=== PATIENT | male | born 1970 | race Two or more races ===

== ENCOUNTER 2020-02-16 02:58 | Emergency (ER) | payer SELFPAY ==
[~2020-02-16] VITALS: Ht 172.7 cm; Wt 77.1 kg
--- NOTE | 2020-02-16 03:00 | NUR ---
ED Nurse Note: BROUGHT IN BY [employer] AND [employer] FOR POSSIBLE SUBSTANCE ABUSE. PT STATES SEEING THINGS AND TALKING TO SELF. NO SUICIDAL IDEATION OR HARM TO SELF/OTHERS. PT IS NOT PLACED ON HOLD.
[2020-02-16 03:07] VITALS: BP 145/91
[2020-02-16 03:15] VITALS: BP 143/93
[2020-02-16] MEDS ORDERED: Haloperidol 5mg/ml Inj IM ONE (03:30)
[2020-02-16] MEDS ORDERED: LORazepam Inj 2mg/ml 1ml IV ONE (03:30)
[2020-02-16] MEDS ORDERED: DiphenhydrAMINE 50mg/ml Inj IVP ONE (03:30)
--- NOTE | 2020-02-16 03:32 | Emergency Room Report ---
History of Present Illness General Chief Complaint: Substance Abuse Source: Patient, EMS (Ki Spangler DO) Present Illness HPI Patient presents by paramedics for reports of bizarre behavior and agitated patient's had reported that the patient does smoke marijuana regularly however there was question for possible amphetamine abuse tonight Patient himself does admit to taking marijuana Denies any headache denies any chest pain Patient does have rapid speech however and appears mildly agitated on questioning denies any homicidal or suicidal thoughts (Ki Spangler DO) Allergies: Coded Allergies: No Known Allergies (Unverified , 02/16/20) COVID-19 Screening Contact w/high risk pt: No Recent Travel to affected area: No Experienced COVID-19 symptoms?: No (Ki Spangler DO) Patient History Past Medical History: see triage record Reviewed Nursing Documentation: PMH: Agreed; PSxH: Agreed (Ki Spangler DO) Nursing Documentation-PMH Past Medical History: No History, Except For (EmmawillardKi NARVAEZ) Review of Systems All Other Systems: negative except mentioned in HPI (Ki Spangler DO) Physical Exam Vital Signs Date Time Temp Pulse Resp B/P (MAP) Pulse Ox O2 Delivery O2 Flow Rate FiO2 02/16/20 02:59 98.8 119 20 145/91 (109) 99 Room Air 02/16/20 03:15 99 Sp02 EP Interpretation: reviewed, normal General Appearance: other - Agitated with rapid speech Head: normocephalic, atraumatic Eyes: bilateral eye PERRL, bilateral eye EOMI ENT: hearing grossly normal, normal pharynx, TMs + canals normal, uvula midline Neck: full range of motion, supple, no meningismus, no bony tend Respiratory: lungs clear, normal breath sounds, no rhonchi, no respiratory distress, no retraction, no accessory muscle use Cardiovascular #1: normal peripheral pulses, regular rate, rhythm, no edema, no gallop, no JVD, no murmur Gastrointestinal: normal bowel sounds, non tender, soft, no mass, no organomegaly, non-distended, no guarding, no hernia, no pulsatile mass, no rebound Genitourinary: no CVA tenderness Musculoskeletal: normal inspection Neurologic: motor strength/tone normal, sensory intact, responsive Psychiatric: other - Agitated Skin: no rash Lymphatic: normal inspection, no adenopathy (Ki Spangler DO) Medical Decision Making Diagnostic Impression: Primary Impression: Substance abuse ER Course Multiple differentials including but not limited to psychiatric, metabolic, neurological differentials entertained Patient received medications to improve his agitation Patient resting comfortably throughout his stay At this time the drug screen does reveal amphetamine and marijuana consistent with what was reported Contact is being made and attempted to the patient's family patient continues to rest at this time there has been no Remarks to consider psychiatric or medical hold Patient will have reevaluation when further sobered and also contact with family Labs Test 02/16/20 04:14 02/16/20 04:40 White Blood Count 8.7 K/UL (4.8-10.8) Red Blood Count 5.04 M/UL (4.70-6.10) Hemoglobin 14.8 G/DL (14.2-18.0) Hematocrit 41.6 % (42.0-52.0) Mean Corpuscular Volume 82 FL (80-99) Mean Corpuscular Hemoglobin 29.4 PG (27.0-31.0) Mean Corpuscular Hemoglobin Concent 35.7 G/DL (32.0-36.0) Red Cell Distribution Width 10.9 % (11.6-14.8) Platelet Count 274 K/UL (150-450) Mean Platelet Volume 5.7 FL (6.5-10.1) Neutrophils (%) (Auto) 76.1 % (45.0-75.0) Lymphocytes (%) (Auto) 15.5 % (20.0-45.0) Monocytes (%) (Auto) 6.6 % (1.0-10.0) Eosinophils (%) (Auto) 0.6 % (0.0-3.0) Basophils (%) (Auto) 1.2 % (0.0-2.0) Sodium Level 142 MMOL/L (136-145) Potassium Level 3.4 MMOL/L (3.5-5.1) Chloride Level 105 MMOL/L (98-107) Carbon Dioxide Level 23 MMOL/L (21-32) Anion Gap 14 mmol/L (5-15) Blood Urea Nitrogen 15 mg/dL (7-18) Creatinine 1.0 MG/DL (0.55-1.30) Estimat Glomerular Filtration Rate > 60 mL/min (>60) Glucose Level 109 MG/DL (74-106) Calcium Level 8.8 MG/DL (8.5-10.1) Total Bilirubin 0.7 MG/DL (0.2-1.0) Aspartate Amino Transf (AST/SGOT) 26 U/L (15-37) Alanine Aminotransferase (ALT/SGPT) 42 U/L (12-78) Alkaline Phosphatase 123 U/L (46-116) Total Protein 7.5 G/DL (6.4-8.2) Albumin 4.3 G/DL (3.4-5.0) Globulin 3.2 g/dL Albumin/Globulin Ratio 1.3 (1.0-2.7) Salicylates Level 1.5 ug/mL (2.8-20) Acetaminophen Level < 2 MCG/ML (10-30) Serum Alcohol < 3 mg/dL Urine Opiates Screen Negative (NEGATIVE) Urine Barbiturates Screen Negative (NEGATIVE) Phencyclidine (PCP) Screen Negative (NEGATIVE) Urine Amphetamines Screen Positive (NEGATIVE) Urine Benzodiazepines Screen Negative (NEGATIVE) Urine Cocaine Screen Negative (NEGATIVE) Urine Marijuana (THC) Screen Positive (NEGATIVE) (Ki Spangler DO) ER Course 49-year-old male presents with acute intoxication with marijuana and amphetamines Patient signed out to me Reevaluation at 8:14 AM patient is back to baseline his is here to pick him up Disposition home with return precautions (Bravo Chavez MD) Last Vital Signs Date Time Temp Pulse Resp B/P (MAP) Pulse Ox O2 Delivery O2 Flow Rate FiO2 02/16/20 03:15 98.7 109 20 143/93 99 Room Air 02/16/20 03:15 99 Status: improved (Ki Spangler DO) Disposition: HOME, SELF-CARE Condition: Stable Referrals: NOT CHOSEN ANA/,REFERRING (PCP) [facility] Patient Instructions: Cannabis Use Disorder Additional Instructions: The patient was provided with discharge instructions, notified to follow-up with a primary care doctor and or specialist in the next 24-48 hours, and to return to the ED if they have worsening of their symptoms. Please note that this report is being documented using [employer] technology. This can lead to erroneous entry secondary to incorrect interpretation by the dictating instrument. Ki Spangler DO Feb 16, 2020 03:32 Bravo Chavez MD Feb 16, 2020 08:14
--- NOTE | 2020-02-16 03:45 | NUR ---
ED Nurse Note: blood drawn and sent to lab
--- NOTE | 2020-02-16 03:50 | NUR ---
ED Nurse Note: urine collected and sent to lab
[2020-02-16 04:27] LABS: BASOPHILS % (AUTO) 1.2 % (0.0-2.0); EOSINOPHILS % (AUTO) 0.6 % (0.0-3.0); HEMATOCRIT 41.6 % (42.0-52.0); HEMOGLOBIN 14.8 G/DL (14.2-18.0); LYMPHOCYTES % (AUTO) 15.5 % (20.0-45.0); MEAN CORPUSCULAR VOLUME 82 FL (80-99); MONOCYTES % (AUTO) 6.6 % (1.0-10.0); NEUTROPHILS % (AUTO) 76.1 % (45.0-75.0); PLATELET COUNT 274 K/UL (150-450); RED BLOOD COUNT 5.04 M/UL (4.70-6.10); RED CELL DISTRIBUTION WIDTH 10.9 % (11.6-14.8); WHITE BLOOD COUNT 8.7 K/UL (4.8-10.8)
[2020-02-16 04:31] LABS: ANION GAP 14 mmol/L (5-15); BLOOD UREA NITROGEN 15 mg/dL (7-18); CALCIUM 8.8 MG/DL (8.5-10.1); CARBON DIOXIDE 23 MMOL/L (21-32); CHLORIDE 105 MMOL/L (98-107); POTASSIUM 3.4 MMOL/L (3.5-5.1); SODIUM 142 MMOL/L (136-145)
[2020-02-16 04:35] LABS: ALANINE AMINOTRANSFERASE 42 U/L (12-78); ALBUMIN 4.3 G/DL (3.4-5.0); ALBUMIN/GLOBULIN RATIO 1.3 (1.0-2.7); ALKALINE PHOSPHATASE 123 U/L (46-116); ASPARTATE AMINO TRANSFERASE 26 U/L (15-37); BILIRUBIN,TOTAL 0.7 MG/DL (0.2-1.0)
[2020-02-16 05:00] VITALS: BP 137/89
--- NOTE | 2020-02-16 05:00 | NUR ---
ED Nurse Note: pt is calm and sleeping. vss, nad.
[2020-02-16 08:27] VITALS: BP 129/85
[2020-02-16 08:30] VITALS: BP 129/85
--- NOTE | 2020-02-16 08:30 | NUR ---
ER DISCHARGE NOTE: Patient is cleared to be discharged per ERMD, pt is aox4, on room air, with stable vital signs. pt was given dc instructions, pt was able to verbalize understanding, pt id band and iv site removed without complications. pt is able to ambulate with steady gait. pt took all belongings.
== END 2020-02-16 08:30 | disposition home or self-care (01) ==
LOC: EDBD 02:58 → EMR 03:16
DX: F15.129 Other stimulant abuse with intoxication, unspecified (principal); F12.90 Cannabis use, unspecified, uncomplicated
CPT/HCPCS: 36415; 80053; 80307; 85025; 96361; 96372; 96374; 96375; 99284; G0480; J1200; J1630; J7030